=== PATIENT | female | born 2000 | race Caucasian/White ===

== ENCOUNTER 2018-06-26 12:06 | Day surgery (SDC) | payer BC ==
[~2018-06-26 12:06] MED LIST: Iopamidol 370 76% 100 ML VIAL ONE
[2018-06-26] MEDS ORDERED: PROPOFOL 200 MG/20 ML VIAL ONE (13:01)
[2018-06-26] MEDS ORDERED: Ketorolac Tromethamine 30 MG/ML VIAL ONE (13:01)
[2018-06-26] MEDS ORDERED: Succinylcholine Chloride 20 MG/ML 10 ml SYRINGE FS ONE (13:01)
[2018-06-26] MEDS ORDERED: Ondansetron HCl/PF 4 MG/2 ML Vial ONE ×2 (13:01→13:39)
[2018-06-26] MEDS ORDERED: Glycopyrrolate 0.2 MG/ML 5 ML SYRINGE ONE (13:01)
[2018-06-26] MEDS ORDERED: Dexamethasone 20 MG/5 ML VIAL ONE (13:01)
[2018-06-26] MEDS ORDERED: Lidocaine 1% PF 5 ML VIAL ONE (13:01)
[2018-06-26 13:32] LABS: BHCG - Serum Negative (NEGATIVE); Pregs Control Background? CLEAR/WHITE (CLR/WHITE); Pregs Control Bar Appear? YES (CONTROL BAR)
[2018-06-26 13:38] LABS: ALT (SGPT) 11 U/L (8-55); AST (SGOT) 17 U/L (5-34); Albumin 4.4 g/dL (3.5-5.0); Alkaline Phosphatase 40 U/L (40-150); Anion Gap 15 mmol/L (10-20); BUN (Urea Nitrogen) 14 mg/dL (7.0-18.7); Calc. Creatinine Clearance 0 mL/min (70-130); Calcium 9.7 mg/dL (7.8-10.44); Carbon Dioxide 22 mmol/L (22-29); Chloride 105 mmol/L (98-107); Estimated GFR-MDRD Greater than 90; Globulin 3.6 g/dL (2.4-3.5); Glucose 94 mg/dL (70-105); Lipase 13 U/L (8-78); Potassium 4.1 mmol/L (3.5-5.1); Sodium 138 mmol/L (136-145)
[2018-06-26 13:41] LABS: Band 4 % (5-11); Hemoglobin 14.4 g/dL (12.0-16.0); Lymphocytes 8 % (28-48); MDiff Complete? YES; Mean Corpuscular HGB CONC 34.6 g/dL (32.0-36.0); Mean Corpuscular Hemoglobin 27.8 pg (25.0-35.0); Mean Corpuscular Volume 80.4 fL (78.0-98.0); Mean Platelet Volume 7.5 fL (7.4-10.4); Monocytes 3 % (0-4); Neutrophil 84 % (31-61); PLT Morphology Comment Appears Adequate; Platelet Count 233 thou/uL (130-400); RBC Distribution Width 10.8 % (11.5-14.5); Red Blood Cell (RBC) Count 5.16 mill/uL (4.00-5.20); White Blood Cell (WBC) Count 16.7 thou/uL (4.8-10.8)
[2018-06-26 15:03] LABS: Bilirubin Negative (Negative); Blood, Urine Negative (Negative); Clarity Clear (Clear); Glucose, Urine (Dipstick) Negative (Negative); Leukocyte Negative (Negative); Nitrite Negative (Negative); Protein, Urine (Dipstick) Negative (Neg-Trace); Urobilinogen 0.2 mg/dL (0.2-1.0)
--- NOTE | 2018-06-26 16:07 | CT ---
CT ABDOMEN WITH CONTRAST CT PELVIS WITH CONTRAST: HISTORY: Elevated white blood cell count. Right lower quadrant pain. Evaluate for appendicitis. COMPARISON: None. TECHNIQUE: A CT abdomen and pelvis is performed with IV contrast. Enteric contrast was also administered. Toney nal reformatted images are submitted. FINDINGS: ABDOMEN CT: Clear lung bases. Normal heart size. No pericardial fluid. Visualized aorta has a normal caliber. Portal vein is patent. Unremarkable gallbladder. Liver, spleen, pancreas, and adrenal glands have appropriate enhancement. No gastrohepatic, retrocrural, or periportal lymphadenopathy. Decreased intraabdominal fat limits evaluation for inflammatory change. No mesenteric mass, lymphade nopathy, free air, or significant free fluid. Symmetric enhancement of the kidneys. Bilaterally, no obstructive uropathy. Gastric mucosa, duodenum, and small bowel loops are unremarkable. Ileocecal junction is normal. The re is scattered fecal material in a nondistended, nondilated colon. Emanating from the cecal apex is a blunt-ending tubular structure with adjacent mesenteric stranding. This tubular structure measures 1.1 cm and is compatible with an inflamed appendix. No evidence of perforation or abscess. No free air. PELVIC CT: Intrauterine device is noted. No mass, lymphadenopathy, or free air. There is a trace amount of aurelia e fluid. Unremarkable urinary bladder. There appear to be bilateral pars defects with presumed anterolisthesis of L5 upon S1. Evaluation is incomplete. IMPRESSION: Appendicitis without evidence of abscess or perforation. Results of the study discussed with Dr. Sutton 06/26/18 at 3:59 p.m. DANIELLA TIMMONS POS: [facility]
[2018-06-26] MEDS ORDERED: Piperacillin/Tazobactam 4.5 GM VIAL ONE (16:41)
[2018-06-26] MEDS ORDERED: Sodium Chloride 0.9% 100 ML ONE (16:41)
[2018-06-26] MEDS ORDERED: Bupivacaine/Epinephrine 0.25% 30 ML VIAL ONE (18:03)
[2018-06-26] MEDS ORDERED: Scopolamine 1.5 mg/72 hour Patch ONE (18:10)
[2018-06-26] MEDS ORDERED: Midazolam HCl 2 mg/2 ml Vial ONE (18:10)
[2018-06-26] MEDS ORDERED: Fentanyl 100 MCG/2 ML VIAL ONE (18:16)
[2018-06-26] MEDS ORDERED: HYDROmorphone 2 MG/ML VIAL ONE (18:16)
[2018-06-26] MEDS ORDERED: HYDROcodone/Acetaminophen 5/325 mg Tablet ONE (21:10)
--- NOTE | 2018-06-26 22:43 | OP ---
PREOPERATIVE DIAGNOSIS: Acute appendicitis. SURGEON: Ryan Garrido M.D. PROCEDURE PERFORMED: Laparoscopic appendectomy. INDICATIONS: This is a 18-year-old female who presented with a 24-hour history of right lower quadra nt pain associated with nausea, vomiting. CT showed appendicitis. FINDINGS: Acute suppurative nonperforated appendicitis. PROCEDURE IN DETAIL: After informed consent was obtained, the patient was taken to the operating chito m, given general endotracheal anesthesia, placed in the supine position. Abdomen was prepped and tej ped in usual fashion. A subumbilical incision was performed. The subcu divided sharply. The fascia grasped and two stay sutures of 0 Vicryl placed on either side of midline. Midline incised. Digita l palpation revealed no local adhesions. A blunt 10-12 mm trocar inserted. Pneumoperitoneum was cre ated to a pressure of 15 mmHg. Zero degree laparoscope inserted under direct vision, two 5 mm ports placed, one suprapubic and one right lateral abdomen. The appendix was found. The mesoappendix divi ded utilizing the LigaSure. The base of the appendix was divided utilizing the linear 45 mm white lo ad stapler. The appendix was placed in an Endosac and removed from the abdomen in an Endosac. Hemos tasis was assured. The abdomen was irrigated, irrigation fluid removed. The fascia closed with inte rrupted 0 Vicryl suture. The skin closed with interrupted 4-0 Rapide. Steri-Strips applied. Steril e bandage applied. The patient tolerated the procedure well and was transferred to recovery in good condition. Sponge and needle count verified correct x2.
[2018-06-27 19:26] LABS: Chlamydia by PCR Not Detected (NotDetected); GC by PCR Not Detected (NotDetected)
== END 2018-06-26 21:25 | disposition home or self-care (01) ==
LOC: SCSER 12:06 → SDC 17:20
PROVIDERS: ATTEND Surgery
PROC: 0DTJ4ZZ Resection of Appendix, Percutaneous Endoscopic Approach (ICD-10-PCS; principal; 2018-06-26)
DX: K35.80 Unspecified acute appendicitis (principal)
CPT/HCPCS: 74177; 80053; 81003; 83690; 84703; 85025; 87480; 87491; 87510; 87591; 87660; 88304; 96361; 96374; 96375; J1100; J1170; J1885; J2001; J2250; J2405; J2543; J2704; J3010; J7050